=== PATIENT | male | born 1960 | race African-American/Black ===

== ENCOUNTER 2020-12-14 17:45 | Emergency (ER) | payer OTHER ==
[~2020-12-14] VITALS: Ht 190.5 cm; Wt 99.8 kg
[2020-12-14 19:02] LABS: ABSOLUTE NEUTROPHILS 1.8 thou/uL (1.4-8.2); BASOPHILS 1.1 % (0.0-2.0); EOSINOPHILS 2.6 % (0.0-3.0); HEMATOCRIT 38.4 % (42.0-52.0); HEMOGLOBIN 12.5 gm/dL (14.0-18.0); MCH 28.8 pg (26.0-34.0); MCHC 32.5 g/dL (28.0-37.0); MCV 88.6 fL (80.0-100.0); MONOCYTES 11.7 % (1.0-8.0); PLATELET COUNT 244 thou/uL (150-400); POLYS 45.6 % (36.0-66.0); RBC 4.33 mil/uL (4.50-6.00); RDW 17.5 % (10.5-14.5)
[2020-12-14 19:15] LABS: CALCIUM 8.6 mg/dL (8.5-10.1)
[2020-12-14] MEDS ORDERED: PREDNISONE 20 M20 MG PO (20:50)
[2020-12-14 20:51] VITALS: BP 152/98
== END 2020-12-14 21:04 | disposition home or self-care (01) ==
LOC: ER 17:45
PROVIDERS: Nurse Practitioner
DX: M79.661 Pain in right lower leg (principal); M79.662 Pain in left lower leg; R20.0 Anesthesia of skin; R20.2 Paresthesia of skin